=== PATIENT | male | born 1960 | race Caucasian/White ===

== ENCOUNTER 2017-03-16 09:55 | Emergency (ER) | payer MEDICAID ==
[~2017-03-16] VITALS: Ht 188 cm; Wt 107.0 kg
[2017-03-16 10:25] VITALS: BP 145/88
== END 2017-03-16 10:26 | disposition home or self-care (01) ==
LOC: ER 09:57
DX: J20.9 Acute bronchitis, unspecified (principal); I10 Essential (primary) hypertension; E11.9 Type 2 diabetes mellitus without complications; E78.00 Pure hypercholesterolemia, unspecified; Z88.0 Allergy status to penicillin; Z88.8 Allergy status to other drugs, medicaments and biological substances; Z91.040 Latex allergy status
CPT/HCPCS: 99283; A4606; Z7610

== ENCOUNTER 2017-03-17 05:58 | Emergency (ER) | payer MEDICAID ==
[~2017-03-17] VITALS: Ht 188 cm; Wt 108.9 kg
[2017-03-17 06:00] VITALS: BP 162/87
== END 2017-03-17 06:00 | disposition home or self-care (01) ==
LOC: ER 05:58
DX: J20.9 Acute bronchitis, unspecified (principal); I10 Essential (primary) hypertension; E11.9 Type 2 diabetes mellitus without complications; E78.00 Pure hypercholesterolemia, unspecified; Z88.0 Allergy status to penicillin; Z88.8 Allergy status to other drugs, medicaments and biological substances; Z91.040 Latex allergy status
CPT/HCPCS: 99283; A4606; Z7610

== ENCOUNTER 2017-04-21 14:01 | Emergency (ER) | payer MEDICAID ==
[~2017-04-21] VITALS: Ht 188 cm; Wt 107.0 kg
[2017-04-21 14:01] VITALS: BP 150/99
== END 2017-04-21 16:57 | disposition home or self-care (01) ==
LOC: ER 14:03
DX: R21 Rash and other nonspecific skin eruption (principal); E11.9 Type 2 diabetes mellitus without complications; E78.00 Pure hypercholesterolemia, unspecified; I10 Essential (primary) hypertension; Z88.0 Allergy status to penicillin; Z91.040 Latex allergy status; Z88.8 Allergy status to other drugs, medicaments and biological substances
CPT/HCPCS: 82962; 99282; A4606; Z7610

== ENCOUNTER 2017-07-28 15:25 | Emergency (ER) | payer BC, MEDICAID ==
[~2017-07-28] VITALS: Ht 188 cm; Wt 99.8 kg
[2017-07-28 15:25] VITALS: BP 155/78
== END 2017-07-28 16:25 | disposition home or self-care (01) ==
LOC: ER 15:27
DX: J20.9 Acute bronchitis, unspecified (principal); J01.90 Acute sinusitis, unspecified; I10 Essential (primary) hypertension; E11.9 Type 2 diabetes mellitus without complications; E78.00 Pure hypercholesterolemia, unspecified; Z88.0 Allergy status to penicillin; Z88.8 Allergy status to other drugs, medicaments and biological substances; Z91.040 Latex allergy status
CPT/HCPCS: 99283; A4606; Z7610